=== PATIENT | male | born 1980 | race Caucasian/White ===

== ENCOUNTER 2023-06-14 11:34 | Outpatient (REF) | payer BC, SELFPAY ==
[2023-06-14 12:13] LABS: Abs Immature Grans 0.02 10^3/uL (0.0-0.06); Absolute Basophil Count 0.04 10^3/uL (0.0-0.2); Absolute Eosinophil Count 0.11 10^3/uL (0.0-0.7); Absolute Lymphocyte Count 1.66 10^3/uL (1.2-3.4); Absolute Monocyte Count 0.36 10^3/uL (0.1-0.8); Absolute Neutrophil Count 3.98 10^3/uL (1.2-6.7); Basophils % 0.6; Eosinophils % 1.8; HCT 45.4 % (40.0-50.0); HGB 15.7 g/dL (13.5-17.5); Immature Grans % 0.3; Lymphocytes % 26.9; MCH 29.3 pg (27.0-33.0); MCHC 34.6 % (32.0-36.0); MCV 85 fL (80-95); MPV 8.2 fL (8.0-11.0); Monocytes % 5.8; Neutrophils % 64.6; Platelet Count 177 10^3/uL (130-400); RBC 5.35 10^6/uL (4.36-5.78); RDW 12.6 % (11.8-14.1); RDW-SD 38.6 fL; WBC 6.17 10^3/uL (4.4-10.8)
[2023-06-14 12:32] LABS: ALT 31 U/L (16-63); AST 13 U/L (15-37); Albumin 4.1 g/dL (3.4-5.0); Alkaline Phosphatase 51 U/L (46-116); Anion Gap 4.5 mmol/L (3-11); BUN 17 mg/dL (7-18); CO2 30.5 mmol/L (21.0-32.0); CREATININE 0.9 mg/dL (0.70-1.30); Calcium 8.9 mg/dL (8.5-10.1); Calculated LDL 91 mg/dL (<100); Chloride 104 mmol/L (98-107); Cholesterol 165 mg/dL (<200); Estimated GFR 109.36 (mL/min/1.73m2); Glucose 95 mg/dL (74-106); HDL Cholesterol 60 mg/dL (40-60); Potassium 4.2 mmol/L (3.5-5.1); Sodium 139 mmol/L (136-145); Total Protein 7.5 g/dL (6.4-8.2); Triglyceride 71 mg/dL (<150)
== END 2023-06-14 11:35 | disposition home or self-care (01) ==
LOC: LBN 11:34
PROVIDERS: PCP Family Medicine; Visit Provider Surgery
DX: K62.5 Hemorrhage of anus and rectum (principal); K64.8 Other hemorrhoids; R19.5 Other fecal abnormalities; Z13.220 Encounter for screening for lipoid disorders
CPT/HCPCS: 80053; 80061; 85025

== ENCOUNTER 2023-06-29 08:16 | Day surgery (SDC) | payer BC, SELFPAY ==
--- NOTE | 2023-06-28 19:34 | PDOC.DSDIS_ITS ---
Date of service: 06/29/23 Time of Service: 10:29 Discharge Plan Disposition Patient Disposition: Home Condition: Good Discharge Details Reason For Visit: colon scope Attending Provider: Meme Benoit Primary Care Provider: Pedro Pablo Martínez Home Meds and New Rx's Prescriptions: Discontinued polyethylene glycol 3350 17 gram/dose powder 238 g PO ONCE Qty: 238 0RF Rx Instructions: take per colonoscopy instructions bisacodyl [Dulcolax (bisacodyl)] 5 mg tablet,delayed release (DR/EC) 5 mg PO ONCE Qty: 4 0RF Rx Instructions: take per colonoscopy instructions No Action No Known Home Meds Discharge Instructions Additional Instructions: DSU Colonoscopy Post- Op Instructions Instructions for Everyone who is given Anesthesia: For your safety, please do the following for the next twenty-four (24) hours: *Do Not operate a motor vehicle (car, truck, motorcycle, etc.) *Do Not drink alcoholic beverages or use any recreational drugs for the first 24 hours or while taking pain medications. The medications in your body may have a reaction that can be dangerous. *Do Not make any important decisions or sign any important papers. Findings: small polyp Follow up: My office will send you a letter in 2 to 3 weeks time with the biopsy results of the polyp and when we want you to repeat the colonoscopy. 1. No lifting over 20 pounds or strenuous activity for the first 24 hours after your procedure. After 24 hours there are no restrictions on your activity but you may feel fatigued for a few days. 2. After you arrive home you may have a light meal and return to your normal diet as you can tolerate it without feeling sick to your stomach. 3. You may have a bloated, gaseous feeling in your belly (abdomen) after a colonoscopy. Passing gas and belching will help. Walking or lying down on your left side with your knees flexed may relieve the discomfort. Call the office at [phone] (Office) or [phone] (Hospital) right away if you notice any of the following: a.Vomiting of blood or ?coffee ground stools?. b.Rectal bleeding 1Tbsp, blood clots or continuous bleeding. c.Severe belly (abdominal) pain. d.A hard distended belly (abdomen) and an inability to pass gas. 4. Please don?t expect to have a normal BM (bowel movement) for 2-3 days after your procedure. 5. If there are questions regarding the findings of your procedure, please contact your doctor 6. If you are unable to contact your doctor with a problem, contact the hospital at [phone]. 7. Continue all your regular medications unless directed otherwise. I understand the above instructions and have no questions. Signature of Patient or Adult Escort Name of Responsible Adult Escort Signature of Nurse Date/Time Activity:: see above Diet:: see above Discharge Orders Discharge Orders: Discharge Order (Routine); Ordered 06/29/23 Ordered By: Meme Benoit DS: Diagnosis Discharge Diagnosis (1) Rectal bleeding: Status: Acute (2) Heme positive stool: Status: Acute Asessment and Plan: The patient is seen and examined after their colonoscopy.? The patient has been able to pass gas.? They are not having abdominal pain.? They have been able to tolerate liquids and a snack.? They do not have any nausea or vomiting.? They are not having any chest pain or shortness of breath.??? They are not having any rectal bleeding. Their vital signs have been stable-see nursing notes. We discussed findings during their colonoscopy, and any biopsies that were done/polyps that were removed. The patient will be sent a letter with any biopsy results, and when to repeat the colonoscopy.-see discharge instructions. Patient was given explicit instructions to follow-up regarding colonoscopy-refer to discharge instructions.? We reviewed resumption of medications. Patient verbalized understanding and discharged in stable and satisfactory condition- See nursing notes.
--- NOTE | 2023-06-28 19:36 | W.COLOREPORT ---
Date of service: 06/29/23 Time of Service: 10:27 Colonoscopy Report Date of procedure: 06/29/23 Pre-op diagnosis general: heme + stools Post-op diagnosis procedure note: other (polyp) Surgeon: Meme Benoit Anesthesia Type: General:No Airway Estimated blood loss (mL): 1 Pathology: other Complications: None Disposition: same day Prep: Miralax/Dulcolax Retraction Time: 12 Procedure Description: After informed consent was obtained the patient was taken to the procedure room and placed in a left decubitous position. Monitors were applied and a time out was done. The patients name, date of , procedure, allergies to medications and metal in their body was reviewed. The patient was then sedated. Once sedated and comfortable a rectal exam was done. External exam was normal. Internal exam revealed a normal sphincter tone and no palpable masses. The prostate normal. The scope was then introduced and retrofelexed. No internal hemorrhoids were identified. The scope was then advanced to the cecum without BBPS 3 in all segments for total of 9 difficulty. The TI and appendiceal orifice were identified. The prep was BBPS 3 in all segments for a total of 9. The scope was then slowly retracted over 12 minutes back into the rectum. There are no AVMs or diverticula. The mucosa is pink and healthy with a normal vascular pattern. There is a 5 mm flat polyp at 30 cm. This is removed with a cold biopsy forcep. All specimen is retrieved and no bleeding is noted. The scope was removed and the patient was woken up and taken back to Same day surgery in stable condition. The patient tolerated the procedure well and there were no immediate complications. Follow up: will be determined by pathology, or if they develop changes in bowel habits or other new gastrointestinal complaints.
--- NOTE | 2023-06-29 06:55 | ANES.PREOP_ITS ---
General Info Date of Service Date Performed: 06/29/23 Height: 5 ft 10 in Weight: 75.863 kg Body Mass Index (BMI): 24.0 Surgical Procedure: Operation Date: 06/29/23 09:05 Proposed Procedure Side Surgeon p Colonoscopy, hemorrhoid banding Meme Benoit, DO Meds Allergies and Home Medications Allergies Allergy/AdvReac Type Severity Reaction Status Date / Time No Known Allergies Allergy Verified 06/29/23 08:32 Home Medication Medication Instructions Recorded Unknown [No Known Home Meds] 06/29/23 Current Visit Medications: Current Medications Generic Name Dose Route Start Last Admin Trade Name Freq PRN Reason Stop Dose Admin Hyoscyamine Sulfate 0.125 mg 06/29/23 07:15 Hyoscyamine 0.125 Mg Sl/Oral/Chew SL 07/29/23 07:14 DIRECTED PRN Ringer's Solution 1,000 mls @ 80 mls/hr 06/29/23 06:00 IV 07/28/23 23:59 INFUSION [facility] IV Miscellaneous Supplies 1 each 06/29/23 06:00 Iv Access IV 07/28/23 23:59 DIRECTED BRENDA Ondansetron HCl 4 mg 06/29/23 07:15 Ondansetron 4 Mg/2 Ml Vial IVP 07/29/23 07:14 Q4H PRN PRN Nausea / Vomiting Sodium Chloride 0 ml 06/29/23 06:00 Normal Saline Flush 10 Ml Syr IV 07/28/23 23:59 PRN PRN Sodium Chloride 0 ml 06/29/23 06:00 Normal Saline 10 Ml Vial IJ 07/28/23 23:59 DIRECTED PRN Sterile Water 0 ml 06/29/23 06:00 Water,Injection,Sterile 10 Ml Vial IJ 07/28/23 23:59 DIRECTED PRN PFSH Active Problems Active Problems: Problem Status Onset Code Internal hemorrhoid, bleeding K64.8 Rectal bleeding K62.5 Other chronic pain 04/08/22 G89.29 Pain in left hip 04/08/22 M25.552 Low back pain, unspecified 04/08/22 M54.50 Heme positive stool R19.5 Medical History Medical History History of rectal bleeding Hx of hemorrhoids Tobacco Smoking/Tobacco Use Status: Never Passive smoking exposure: No Second hand exposure: No Alcohol Alcohol Intake: current Alcohol intake frequency: a few times a week Alcohol type: beer Details: 2-4 times monthly, 1-2 at a time Substance Use Substance use: Never Substance use type: does not use Vital Signs and Lab Results Vital Signs Most Recent Vital Signs in EMR: Temp Pulse Resp BP Pulse Ox 36.5 C 51 L 17 124/72 99 06/29/23 08:26 06/29/23 08:26 06/29/23 08:26 06/29/23 08:26 06/29/23 08:26 Lab Results Blood Type / Crossmatch: No Data to Display Complete Blood Count: White Blood Count 6.17 10^3/uL (4.4-10.8) 06/14/23 12:00 Red Blood Count 5.35 10^6/uL (4.36-5.78) 06/14/23 12:00 Hemoglobin 15.7 g/dL (13.5-17.5) 06/14/23 12:00 Hematocrit 45.4 % (40.0-50.0) 06/14/23 12:00 Platelet Count 177 10^3/uL (130-400) 06/14/23 12:00 Complete Metabolic Panel: Sodium 139 mmol/L (136-145) 06/14/23 12:00 Potassium 4.2 mmol/L (3.5-5.1) 06/14/23 12:00 Chloride 104 mmol/L (98-107) 06/14/23 12:00 Carbon Dioxide 30.5 mmol/L (21.0-32.0) 06/14/23 12:00 BUN 17 mg/dL (7-18) 06/14/23 12:00 Creatinine 0.9 mg/dL (0.70-1.30) 06/14/23 12:00 Est GFR (CKD-EPI 2020) 109.36 (mL/min/1.73m2) 06/14/23 12:00 Calcium 8.9 mg/dL (8.5-10.1) 06/14/23 12:00 Albumin 4.1 g/dL (3.4-5.0) 06/14/23 12:00 Glucose 95 mg/dL (74-106) 06/14/23 12:00 Liver Function Panel: Alanine Aminotransferase (ALT/SGPT) 31 U/L (16-63) 06/14/23 12: 00 Aspartate Amino Transf (AST/SGOT) 13 U/L (15-37) L 06/14/23 12: 00 Coagulation Panel: No Data to Display Cardiac Panel: No Data to Display Arterial Blood Gas: No Data to Display Venous Blood Gas: No Data to Display Pancreas Panel: No Data to Display Thyroid Panel: No Data to Display Infectious Disease: No Data to Display Blood Cultures: No Data to Display Toxicology Panel: No Data to Display Anesthesia Assessment and Plan Anesthesia History Personal History: No History of General Anesthesia Family History: No Family History of Anesthesia Complications Exercise Tolerance Exercise Tolerance: Metabolic Equivalents>4 Pertinent Negatives Pertinent Negatives: No Symptoms of GERD, No Major Cardiovascular Symptoms or Complaints, No Major Pulmonary Symptoms or Complaints and No History of CVA/TIA Cardiac & Pulmonary Exam Cardiac Exam: Normal S1/S2 Heart Sounds Pulmonary Exam: Clear Bilateral Breath Sounds Implantable Cardiac Device Does patient have a Pacemaker or an ICD?: No Airway Exam Known Difficult Airway: No Mallampati Class: 2 Mouth Opening: Normal (> 3cm) Thyromental Distance: Greater than 3 cm Neck Range of Motion: Full ROM Neck Circumference: Normal Teeth Condition: Normal Dentition ASA Classification ASA Score: ASA 2 Emergency Case?: No NPO Status NPO Status: NPO Clears >2 hours, Solids >8 hours Anesthesia Plan Resuscitation Status: Full Code Anesthesia Technique: General Anesthesia Airway Planned: Natural Airway Monitors Used: Standard Monitors
[2023-06-29 08:26] VITALS: BP 124/72; PULSE 51; RESP 17; TEMP 36.5; O2SAT 99
[2023-06-29] MEDS: Lactated Ringers 1,000 ML 80 ML IV (08:40)
[2023-06-29 09:09] VITALS: BMI 24.0
--- NOTE | 2023-06-29 10:06 | BOWEL_PTH ---
PATIENT: Harish Wilkerson LOC: [facility] U#:[id number] AGE/SX: 43/M ROOM: RE06/29/[address]: Meme Benoit : 1980 BED: DIS: 06/29/2023 SPEC #: [id number] RECD: 06/29/23 12:48 STATUS: ROB REQ #: [id number] PRAMOD: 06/29/23 10:[address]: Meme Benoit DEPT: Surgical Specimen RECD BY: Eileen Rios ENTERED: 06/29/23 12:48 SP TYPE: Bowel OTHR DR: Pedro Pablo Martínez DO Tissues: 1 - BIOPSY BOWEL Procedures: GROSS AND MICRO LEVEL 4 Comments: [id number]
[2023-06-29 10:14] VITALS: BP 114/77; PULSE 79; RESP 17; TEMP 36.5; O2SAT 98
--- NOTE | 2023-06-29 10:28 | W.ANESPOSTOP ---
Postoperative Evaluation Date, Time and Location Date Performed: 06/29/23 Time Performed: 10:28 Patient Location: Day Surgery Unit Vital Signs Most Recent Imported Vital Signs: Most Recent Vital Signs Temp Pulse Resp BP Pulse Ox 36.5 C 79 17 114/77 98 06/29/23 10:14 06/29/23 10:14 06/29/23 10:14 06/29/23 10:14 06/29/23 10:14 Pain Score Most Recent Pain Score: Most Recent Pain Score Pain Level 0 06/29/23 08:26 Assessment Mental Status: Awake (Alert & Oriented to Patient Baseline) Airway and Respiratory Function: Patent airway with normal (patient baseline) respiratory exam Cardiovascular Function: Hemodynamically Stable Hydration Status: Adequately Hydrated Nausea & Vomiting: No Nausea or Vomiting Pain: Pt. Denies Any Pain Peripheral Nerve Block: Patient did not receive a nerve block
[2023-06-29 10:45] VITALS: BP 116/76; PULSE 45; RESP 18; TEMP 36.5; O2SAT 98
== END 2023-06-29 11:30 | disposition home or self-care (01) ==
PROVIDERS: PCP Family Medicine; Visit Provider Surgery
PROC: 0DJD8ZZ Inspection of Lower Intestinal Tract, Via Natural or Artificial Opening Endoscopic (ICD-10-PCS; CPT 45378; principal; 2023-06-29 09:00)
DX: R19.5 Other fecal abnormalities; K63.5 Polyp of colon; K63.89 Other specified diseases of intestine
CPT/HCPCS: 45380; 88305; J2001

== ENCOUNTER 2025-01-11 01:46 | Outpatient (CLI) | payer BC, SELFPAY ==
--- NOTE | 2025-01-11 14:00 | DI.RAD_ITS ---
Exam(s) XR LUMBAR SPINE COMPLETE EXAM: XR LUMBAR SPINE COMPLETE CLINICAL HISTORY: Recurrent LOW BACK PAIN, evaluate disc space,m54.50. TECHNIQUE: 2D digital imaging was performed of the lumbar spine. Five images were obtained. AP, la teral, right oblique, left oblique and L5-S1 spot views were obtained. COMPARISON: No exams were available for comparison FINDINGS: BONES: No fracture or destructive lesion. Vertebral bodies are unremarkable. No facet hypertrophy richie ntified. DISKS: Intervertebral disc spaces are maintained. ALIGNMENT: Lumbar spinal alignment is within normal limits. No spondylolysis or spondylolisthesis. SOFT TISSUE: Normal. IMPRESSION: Unremarkable radiographs of the lumbar spine. DATA REPOSITORY: RADIATION DOSE DELIVERED:
--- NOTE | 2025-01-11 14:08 | DI.RAD_ITS ---
Exam(s) XR HIP LT COMPLETE AP PELVIS EXAM: XR HIP LT COMPLETE AP PELVIS CLINICAL HISTORY: LT HIP PAIN, M25.552, EVALUATE FOR ARTHRITIS. TECHNIQUE: 2D digital imaging was performed of the left hip. Two views were obtained. AP pelvis an d lateral left hip views were obtained. COMPARISON: No exams were available for comparison FINDINGS: BONES: No acute fracture is present. No bony destructive lesion is seen. JOINTS: No dislocation present. The left hip joint space is well maintained. No significant joint sp zamzam narrowing is seen. No osteophytes are present. No findings to suggest avascular necrosis are se en. SOFT TISSUE: Normal. IMPRESSION: Unremarkable radiographs of the left hip. DATA REPOSITORY: RADIATION DOSE DELIVERED:
== END 2025-01-11 02:06 ==
LOC: DI 01:46
PROVIDERS: PCP Family Medicine; Visit Provider Family Medicine
DX: M54.50 Low back pain, unspecified (principal); M25.552 Pain in left hip
CPT/HCPCS: 72110; 73502

== ENCOUNTER 2025-10-02 14:34 | Outpatient (REF) | payer BC, SELFPAY | END 2025-10-02 14:35 | disposition home or self-care (01) | LOC: LBN 14:34 | PROVIDERS: Emergency Medicine; PCP Family Medicine; Visit Provider Family Medicine | DX: R19.4 Change in bowel habit (principal); K62.5 Hemorrhage of anus and rectum | CPT/HCPCS: 87015; 87269; 87272 ==

== ENCOUNTER 2025-10-04 10:24 | Outpatient (REF) | payer BC, SELFPAY | END 2025-10-04 10:25 | disposition home or self-care (01) | LOC: LBN 10:24 | PROVIDERS: PCP Family Medicine; Visit Provider Family Medicine | DX: R19.4 Change in bowel habit (principal) | CPT/HCPCS: 87015; 87269; 87272 ==